=== PATIENT | female | born 1985 ===

== ENCOUNTER 2018-10-12 12:39 | Emergency (ER) | payer SELFPAY ==
[2018-10-12 13:08] VITALS: RESP 18
--- NOTE | 2018-10-12 13:42 | ED PDOC ---
Arrival/HPI - General Historian: Patient - History of Present Illness Narrative History of Present Illness (Text): 10/12/18 13:45 Patient is a 33 year old female with no significant past medical history who presented to the emergency department for intractable headache. patient states that she has been having a bitemporal headache for the past 8 days. She reports having a history of migraines in the past that usually responds to Tylenol and Advil. She last took tylenol yesterday with no relief. Currently headache is 9/10 on pain scale and is associated with photophobia/phonophobia. She reports having intermittent episodes of nausea and two episodes of vomiting (yesterday and the day before). Time/Duration: > week Symptom Onset: Gradual Symptom Course: Worsening Severity Level: 9 <Nakita Manzo - Last Filed: 10/12/18 15:41> <Jewel Mcknight - Last Filed: 10/12/18 16:27> - General Chief Complaint: Headache Time Seen by Provider: 10/12/18 12:42 Past Medical History - Provider Review Nursing Documentation Reviewed: Yes - Travel History Have you recently traveled outside [place] w/in the past 3 mons?: No - Infectious Disease Hx of Infectious Diseases: None - Tetanus Immunization Tetanus Immunization: Unknown - Psychiatric Hx Substance Use: No - Surgical History Hx Section: Yes (x 2) - Anesthesia Hx Anesthesia: Yes Hx Anesthesia Reactions: No Hx Malignant Hyperthermia: No <Nakita Manzo - Last Filed: 10/12/18 15:41> Family/Social History - Physician Review Nursing Documentation Reviewed: Yes Family/Social History: Hypertension Smoking Status: Never Smoked Hx Alcohol Use: No Hx Substance Use: No Hx Substance Use Treatment: No <Nakita Manzo - Last Filed: 10/12/18 15:41> Allergies/Home Meds <Nakita Manzo - Last Filed: 10/12/18 15:41> <Jewel Mcknight - Last Filed: 10/12/18 16:27> Allergies/Adverse Reactions: Allergies No Known Allergies Allergy (Verified 10/12/18 13:02) Review of Systems - Review of Systems Constitutional: absent: Fevers Eyes: Vision Changes, Photophobia ENT: absent: Hearing Changes, Rhinorrhea, Sinus Congestion Respiratory: absent: SOB, Cough Cardiovascular: absent: Chest Pain, Palpitations Gastrointestinal: Diarrhea, Nausea, Vomiting. absent: Abdominal Pain, Constipation Genitourinary Female: Dysuria Neurological: Headache, Dizziness. absent: Focal Weakness <Nakita Manzo - Last Filed: 10/12/18 15:41> Physical Exam Vital Signs Reviewed: Yes Vital Signs Temp Pulse Resp BP Pulse Ox 10/12/18 12:40 98.8 F 69 18 129/88 98 Temperature: Afebrile Blood Pressure: Normal Pulse: Regular Respiratory Rate: Normal Appearance: Positive for: Well-Appearing, Non-Toxic Pain Distress: Mild Mental Status: Positive for: Alert and Oriented X 3 - Systems Exam Head: Present: Atraumatic, Normocephalic Pupils: Present: PERRL Extroacular Muscles: Present: EOMI Conjunctiva: Present: Normal Mouth: Present: Moist Mucous Membranes Pharnyx: No: ERYTHEMA, EXUDATE, TONSILS ENLARGED Neck: Present: Normal Range of Motion. No: Meningeal Signs Respiratory/Chest: Present: Clear to Auscultation, Good Air Exchange. No: Respiratory Distress, Accessory Muscle Use Cardiovascular: Present: Regular Rate and Rhythm, Normal S1, S2 Abdomen: Present: Tenderness (+suprapubic tenderness), Normal Bowel Sounds. No: Peritoneal Signs, Rebound, Guarding Back: Present: Normal Inspection. No: CVA Tenderness Lower Extremity: Present: Normal Inspection. No: Edema, CALF TENDERNESS Neurological: Present: GCS=15 Skin: Present: Warm, Dry, Normal Color Psychiatric: Present: Alert, Oriented x 3 <Nakita Manzo - Last Filed: 10/12/18 15:41> Vital Signs Temp Pulse Resp BP Pulse Ox 10/12/18 12:40 98.8 F 69 18 129/88 98 <Jewel Mcknight - Last Filed: 10/12/18 16:27> Medical Decision Making ED Course and Treatment: 10/12/18 14:06 Patient seen and examined at bedside. Reports having intractable headache x 8 days that is associated with photophobia/phonophobia, nausea and vomiting. We will order CBC,CMP, UA, CT head w/o contrast, Toradol 30mg IVP, Benadryl 25mg IVP, Reglan 10mg IVP, NS 1L bolus. 10/12/18 15:38 Patient re-examined. Reports that she is feeling better. CT head was negative. Will discharge patient home with instructions to follow up with PMD. - Lab Interpretations I have reviewed the lab results: Yes - RAD Interpretation Narrative RAD Interpretations (Text): 10/12/18 15:39 CT head: Negative for intracranial abnormality Placement Manager: Radiologist <Nakita Manzo - Last Filed: 10/12/18 15:41> ED Course and Treatment: 10/12/18 14:18 Seen and examined with resident. 33 year old female presents with a headache. On exam, no distress. No neck stiffness. PERRL. - RAD Interpretation Radiology Orders: 10/12/18 13:56 HEAD W/O CONTRAST [CT] Stat - Medication Orders Current Medication Orders: Sodium Chloride (Sodium Chloride 0.9%) 1,000 mls @ 999 mls/hr IV .Q1H1M STA Stop: 10/12/18 14:56 Last Admin: 10/12/18 14:09 Dose: 999 mls/hr eMAR Start Stop Document 10/12/18 14:09 ROSANGELA (Rec: 10/12/18 14:09 ROSANGELA [facility] Intravenous Solution Start Date 10/12/18 Start Time 14:09 End Date 10/12/18 End time 15:09 Total Infusion Time 60 Discontinued Medications Diphenhydramine HCl (Benadryl) 25 mg IVP STAT STA Stop: 10/12/18 14:09 Ketorolac Tromethamine (Toradol) 30 mg IVP STAT STA Stop: 10/12/18 13:56 Last Admin: 10/12/18 14:10 Dose: 30 mg MAR Pain Assessment Document 10/12/18 14:10 ROSANGELA (Rec: 10/12/18 14:10 ROSANGELA [facility] Pain Reassessment Is this a pain reassessment? Yes Presence of Pain Presence of Pain Yes Pain Scale Used Protocol: PSCALES Pain Scale Used Numeric Location Left, Right or Bilateral Bilateral Pain Location Body Site Temporal Description Description Constant Intensity of Pain at present 9 IVP Administration Document 10/12/18 14:10 ROSANGELA (Rec: 10/12/18 14:10 [place] [place] Charges for Administration # of IVP Administrations 1 Metoclopramide HCl (Reglan) 10 mg IVP STAT STA Stop: 10/12/18 13:56 Last Admin: 10/12/18 14:11 Dose: 10 mg IVP Administration Document 10/12/18 14:11 ROSANGELA (Rec: 10/12/18 14:11 [facility] [place] Charges for Administration # of IVP Administrations 1 <Jewel Mcknight - Last Filed: 10/12/18 16:27> - PA / INSURANCE SALESMAN / Resident Statement / has reviewed & agrees with the documentation as recorded. MD/DO has examined the patient and agrees with the treatment plan. - Scribe Statement The provider has reviewed the documentation as recorded by the Scribpalomo Pacheco All medical record entries made by the Scribe were at my direction and personally dictated by me. I have reviewed the chart and agree that the record accurately reflects my personal performance of the history, physical exam, medical decision making, and the department course for this patient. I have also personally directed, reviewed, and agree with the discharge instructions and disposition. <Jewel Mcknight - Last Filed: 10/12/18 16:27> Disposition/Present on Arrival - Present on Arrival Any Indicators Present on Arrival: No History of DVT/PE: No History of Uncontrolled Diabetes: No Urinary Catheter: No History of Decub. Ulcer: No History Surgical Site Infection Following: None - Disposition Have Diagnosis and Disposition been Completed?: Yes Disposition Time: 15:39 Patient Plan: Discharge <Nakita Manzo - Last Filed: 10/12/18 15:41> <Jewel Mcknight - Last Filed: 10/12/18 16:27> - Disposition Diagnosis: Migraine Disposition: HOME/ ROUTINE Condition: GOOD Discharge Instructions (ExitCare): Migraine Headache (DC), Migraine Headaches in Adults Print Language: UKRAINIAN Additional Instructions: - Patient prescribed Motrin 600mg Q8H prn headache - Increase PO hydration - Follow up with PMD outpatient within 2-3 days - If symptoms worsen, return to Emergency department Prescriptions: Ibuprofen [Motrin] 600 mg PO Q8H PRN #10 tab PRN Reason: Headache Forms: [employer] (Setswana)
[2018-10-12] MEDS ORDERED: DiphenhydrAMINE 50 mg/ml Inj IVP STA ×2 (13:55→14:08)
[2018-10-12] MEDS ORDERED: Sodium Chloride 0.9% 1,000 ML IV STA (13:56)
[2018-10-12 14:56] LABS: URINE BILIRUBIN NEGATIVE (NEGATIVE); URINE BLOOD NEGATIVE (NEGATIVE); URINE GLUCOSE (UA) NEGATIVE (NEGATIVE); URINE LEUKOCYTE ESTERASE NEGATIVE Leu/uL (NEGATIVE); URINE PROTEIN NEGATIVE mg/dL (<30 mg/dL); URINE UROBILINOGEN 0.2 E.U./dL (<1 E.U./dL)
[2018-10-12 14:57] LABS: URINE APPEARANCE CLEAR (CLEAR); URINE COLOR YELLOW (YELLOW)
[2018-10-12 15:06] LABS: BASO # 0.01 K/mm3 (0.0-2.0); BASO % 0.2 % (0.0-3.0); EOS # 0.1 (0.0-0.7); EOS % 1.1 % (1.5-5.0); GRAN # 2.43 (1.4-6.5); GRAN % 44.2 % (50.0-68.0); HEMOGLOBIN 11.7 g/dL (12.0-16.0); LYMPH # 2.7 (1.2-3.4); LYMPH % 48.5 % (22.0-35.0); MEAN CELL VOLUME 84.5 fl (80.0-105.0); MEAN CORPUSCULAR HEMOGLOBIN 27.5 pg (25.0-35.0); MEAN CORPUSCULAR HGB CONC 32.6 g/dl (31.0-37.0); MEAN PLATELET VOLUME 9.2 fl (7.0-11.0); MONO # 0.3 (0.1-0.6); RBC 4.25 10^6/uL (3.5-6.1); RED CELL DISTRIBUTION WIDTH 12.6 % (11.5-14.5); WHITE BLOOD COUNT 5.5 10^3/uL (4.5-11.0)
[2018-10-12 15:16] LABS: ALB/GLOB RATIO 1.3 (1.1-1.8); ALBUMIN 4.2 g/dL (3.0-4.8); ALT/SGPT 99 U/L (7-56); AST/SGOT 43 U/L (14-36); BLOOD UREA NITROGEN 15 mg/dL (7-21); CALCIUM 9.1 mg/dL (8.4-10.5); GFR NON-AFRICAN AMERICAN > 60
--- NOTE | 2018-10-12 15:26 | CT ---
Date of service: 10/12/2018 PROCEDURE: CT HEAD WITHOUT CONTRAST. HISTORY: intractable headache COMPARISON: None available. TECHNIQUE: Axial computed tomography images were obtained through the head/brain without intravenous contrast. Radiation dose: Total exam DLP = 780.46 mGy-cm. This CT exam was performed using one or more of the following dose reduction techniques: Automated exposure control, adjustment of the mA and/or kV according to patient size, and/or use of iterative reconstruction technique. FINDINGS: HEMORRHAGE: No intracranial hemorrhage. BRAIN: No mass effect or edema. No atrophy or chronic microvascular ischemic changes. VENTRICLES: No hydrocephalus. CALVARIUM: Unremarkable. PARANASAL SINUSES: Unremarkable as visualized. No significant inflammatory changes. MASTOID AIR CELLS: Unremarkable as visualized. No inflammatory changes. OTHER FINDINGS: None. IMPRESSION: No acute intracranial pathology identified.
[2018-10-12 15:52] VITALS: BP 124/74; PULSE 66; TEMP 98.1; O2SAT 99
== END 2018-10-12 15:58 | disposition home or self-care (01) ==
LOC: ED 12:39
DX: G43.909 Migraine, unspecified, not intractable, without status migrainosus (principal)
CPT/HCPCS: 70450; 80053; 81003; 85025; 96361; 96374; 96375; 99283; J1200; J1885; J2765; J7030

== ENCOUNTER 2018-10-31 19:52 | Emergency (ER) | payer OTHER ==
--- NOTE | 2018-10-31 20:07 | ED PDOC ---
Arrival/HPI - General Historian: Patient - History of Present Illness Narrative History of Present Illness (Text): 10/31/18 20:01 33 y/o female, pmh including migraine, nkda, c/o bilateral hand itching rash x several days with no change in soap/clothing/detergent. Itching rash, no pain, no difficulty bending or extending, no night sweat, no rash, no weight loss, no pain, no numbness or tingling, no other medical or psychological complaints. Past Medical History - Provider Review Nursing Documentation Reviewed: Yes - Infectious Disease Hx of Infectious Diseases: None - Tetanus Immunization Tetanus Immunization: Unknown - Psychiatric Hx Substance Use: No - Surgical History Hx Section: Yes (x 2) - Anesthesia Hx Anesthesia: Yes Hx Anesthesia Reactions: No Hx Malignant Hyperthermia: No Family/Social History - Physician Review Nursing Documentation Reviewed: Yes Family/Social History: Unknown Family HX Smoking Status: Never Smoked Hx Alcohol Use: No Hx Substance Use: No Hx Substance Use Treatment: No Allergies/Home Meds Allergies/Adverse Reactions: Allergies No Known Allergies Allergy (Verified 10/31/18 20:17) Review of Systems - Review of Systems Constitutional: absent: Fatigue, Fevers Eyes: absent: Vision Changes ENT: absent: Hearing Changes Respiratory: absent: SOB, Cough Cardiovascular: absent: Chest Pain Gastrointestinal: absent: Abdominal Pain, Nausea, Vomiting Musculoskeletal: absent: Arthralgias Skin: Rash, Pruritis. absent: Skin Lesions, Laceration, Abscess, Ulcer, Cellulitis Neurological: absent: Headache, Dizziness Psychiatric: absent: Anxiety, Depression, Suicidal Ideation Physical Exam - Systems Exam Head: Present: Atraumatic, Normocephalic Pupils: Present: PERRL Extroacular Muscles: Present: EOMI Conjunctiva: Present: Normal Mouth: Present: Moist Mucous Membranes Neck: Present: Normal Range of Motion Respiratory/Chest: Present: Clear to Auscultation, Good Air Exchange. No: Respiratory Distress, Accessory Muscle Use Cardiovascular: Present: Regular Rate and Rhythm, Normal S1, S2. No: Murmurs Abdomen: No: Tenderness, Distention, Peritoneal Signs Back: Present: Normal Inspection Upper Extremity: Present: Normal Inspection. No: Cyanosis, Edema Lower Extremity: Present: Normal Inspection. No: Edema Neurological: Present: GCS=15, CN II-XII Intact, Speech Normal Skin: Present: Warm, Dry, Rashes (visible bilateral hand dermatitis rash with lichenification noted with no cellulitis or ulcers, no streaking or ulcers. ), Normal Color. No: Erythematous, Laceration, Abscess, Abrasion Psychiatric: Present: Alert, Oriented x 3, Normal Insight, Normal Concentration Medical Decision Making ED Course and Treatment: 10/31/18 20:08 -benadryl/decadron -observe and reassess 10/31/18 21:22 -Urine hcg is negative. -Rash resolved, feeling completely resolved, will discharge home. -Discharge home with claritin, topical hydrocortizone prn, keep the skin warm and dry, avoid contact with possible allergen, follow up with your own pmd and outside sales manager within 2 days, return to the ER for any new or worsening signs or symptoms. - PA / FLOODPLAIN MANAGER / Resident Statement / has reviewed & agrees with the documentation as recorded. Disposition/Present on Arrival - Present on Arrival Any Indicators Present on Arrival: No History of DVT/PE: No History of Uncontrolled Diabetes: No Urinary Catheter: No History of Decub. Ulcer: No History Surgical Site Infection Following: None - Disposition Have Diagnosis and Disposition been Completed?: Yes Diagnosis: Dermatitis Disposition: HOME/ ROUTINE Disposition Time: 21:23 Patient Plan: Discharge Condition: IMPROVED Additional Instructions: -Discharge home with claritin, topical hydrocortizone prn, keep the skin warm and dry, avoid contact with possible allergen, follow up with your own pmd and outside sales manager within 2 days, return to the ER for any new or worsening signs or symptoms. Prescriptions: Hydrocortisone 1% Cream [Cortizone 1% Cream] 1 appl TP BID #30 g Loratadine [Claritin] 10 mg PO DAILY PRN #10 tab PRN Reason: Other Referrals: Delmar Anand MD [Staff Provider] - Follow up with primary Forms: WORK NOTE
[2018-10-31 20:19] VITALS: TEMP 98.2; O2SAT 99; BMI 22.3
[2018-10-31 22:55] VITALS: BP 130/87; PULSE 87; RESP 17
== END 2018-10-31 21:41 | disposition home or self-care (01) ==
LOC: ED 19:52
DX: L30.9 Dermatitis, unspecified (principal)
CPT/HCPCS: 96372; 99284; J1100